=== PATIENT | female | born 1980 | race Caucasian/White ===

== ENCOUNTER 2016-06-23 21:05 | Emergency (ER) | payer MEDICAID ==
--- NOTE | 2016-06-23 22:15 | ER Document Report ---
ED Medical Screen (RME) - General Chief Complaint: Rectal Bleeding Stated Complaint: RECTAL BLEEDING Mode of Arrival: Ambulatory Information source: Patient Notes: Patient presents with complaints of rectal bleeding filled the whole toilet bowl with blood. Denies history of GI bleed reports history of constipation. TRAVEL OUTSIDE OF THE [place] IN LAST 30 DAYS: No - Related Data Allergies/Adverse Reactions: No Known Allergies Allergy (Verified 06/23/16 21:51) Past Medical History - Social History Chew tobacco use (# tins/day): No Frequency of alcohol use: Occasional Drug Abuse: None - Past Medical History Cardiac Medical History: Denies: Hx Coronary Artery Disease, Hx Heart Attack, Hx Hypertension Pulmonary Medical History: Denies: Hx Asthma, Hx Bronchitis, Hx COPD, Hx Pneumonia Neurological Medical History: Denies: Hx Cerebrovascular Accident, Hx Seizures Renal/ Medical History: Denies: Hx Peritoneal Dialysis Musculoskeltal Medical History: Denies Hx Arthritis Psychiatric Medical History: Reports: Hx Depression Past Surgical History: Reports: Hx Section - x1. Denies: Hx Hysterectomy - Immunizations Hx Diphtheria, Pertussis, Tetanus Vaccination: Yes - 2010 Physical Exam - Vital signs Vitals: Temp Pulse BP Pulse Ox 97.9 F 91 141/97 H 97 06/23/16 21:09 06/23/16 21:09 06/23/16 21:09 06/23/16 21:09 Course - Vital Signs Vital signs: Temp Pulse Resp BP Pulse Ox 97.9 F 91 141/97 H 97 06/23/16 21:09 06/23/16 21:09 06/23/16 21:09 06/23/16 21:09
[2016-06-23 22:35] LABS: ABSOLUTE BASOPHILS # (AUTO) 0.1 10^3/uL (0.0-0.2); ABSOLUTE EOSINOPHILS # (AUTO) 0.2 10^3/uL (0.0-0.6); ABSOLUTE LYMPHOCYTES (AUTO) 1.8 10^3/uL (0.5-4.7); ABSOLUTE MONOCYTES (AUTO) 0.6 10^3/uL (0.1-1.4); ABSOLUTE NEUT (AUTO) 5.2 10^3/uL (1.7-8.2); EOSINOPHILS % (AUTO) 2.9 % (0-6); HEMATOCRIT 39.7 % (36.0-47.0); HEMOGLOBIN 12.9 g/dL (12.0-15.5); MEAN CORPUSCULAR HEMOGLOBIN 28.4 pg (27.0-33.4); MEAN CORPUSCULAR HGB CONC 32.5 g/dL (32.0-36.0); MEAN CORPUSCULAR VOLUME 87 fl (80-97); MONOCYTES % (AUTO) 7.1 % (3-13); RED BLOOD COUNT 4.55 10^6/uL (3.72-5.28); RED CELL DISTRIBUTION WIDTH 13.4 % (11.5-14.0); WHITE BLOOD COUNT 7.9 10^3/uL (4.0-10.5)
[2016-06-23 22:56] LABS: ALANINE AMINOTRANSFERASE 58 U/L (9-52); ALBUMIN 4.6 g/dL (3.5-5.0); ALKALINE PHOSPHATASE 53 U/L (38-126); ANION GAP 13 (5-19); ASPARTATE AMINO TRANSFERASE 32 U/L (14-36); BILIRUBIN,TOTAL 0.7 mg/dL (0.2-1.3); BLOOD UREA NITROGEN 18 mg/dL (7-20); CALCIUM 9.6 mg/dL (8.4-10.2); CARBON DIOXIDE 29 mmol/L (22-30); CHLORIDE 102 mmol/L (98-107); CREATININE RESULT 0.62 mg/dL (0.52-1.25); GLUCOSE 106 mg/dL (75-110); POTASSIUM 4.3 mmol/L (3.6-5.0); SODIUM 143.5 mmol/L (137-145); TOTAL PROTEIN 7.1 g/dL (6.3-8.2)
[2016-06-24] MEDS ORDERED: MINERAL OIL 30 ML UDCUP PR ONE (00:55)
[2016-06-24] MEDS ORDERED: LIDOCAINE 2% JELLY 30 ML TUBE TOP ONE (01:16)
[2016-06-24] MEDS ORDERED: LIDOCAINE 2% JELLY 30 ML TUBE ONE (01:30)
--- NOTE | 2016-06-24 03:09 | ER Document Report ---
ED General - General Chief Complaint: Rectal Bleeding Stated Complaint: RECTAL BLEEDING Mode of Arrival: Ambulatory Notes: Patient is a 35 of female presents for complaint of hard bowel movements. She is a long history of constipation difficulty having dominance. She sometimes does have some blood with her stool. She said this time after a small bowel movement she had a lot of it will it which is more than what she is used to seeing. She does have a history of hemorrhoids. She says she's had anal fissures in the past. She has seen GI physician for endoscopy but has never had a colonoscopy. Her recent fevers or infections. No abdominal pain. She says she feels pressure in her rectum and says she knows years stool they're just it is painful to pass. No other complaints at this time. TRAVEL OUTSIDE OF THE [place] IN LAST 30 DAYS: No - Related Data Allergies/Adverse Reactions: No Known Allergies Allergy (Verified 06/23/16 21:51) Past Medical History - General Information source: Patient - Social History Smoking Status: Former Smoker Chew tobacco use (# tins/day): No Frequency of alcohol use: Occasional Drug Abuse: None Family History: Reviewed & Not Pertinent Patient has suicidal ideation: No Patient has homicidal ideation: No - Past Medical History Cardiac Medical History: Denies: Hx Coronary Artery Disease, Hx Heart Attack, Hx Hypertension Pulmonary Medical History: Denies: Hx Asthma, Hx Bronchitis, Hx COPD, Hx Pneumonia Neurological Medical History: Denies: Hx Cerebrovascular Accident, Hx Seizures Renal/ Medical History: Denies: Hx Peritoneal Dialysis GI Medical History: Reports: Hx Gastroesophageal Reflux Disease Musculoskeltal Medical History: Denies Hx Arthritis Psychiatric Medical History: Reports: Hx Depression Past Surgical History: Reports: Hx Section - x1. Denies: Hx Hysterectomy - Immunizations Hx Diphtheria, Pertussis, Tetanus Vaccination: Yes - 2010 Review of Systems - Review of Systems Notes: My Normal Review Basic REVIEW OF SYSTEMS: CONSTITUTIONAL : Denies fever, chills, or sweats. Denies recent illness. RESPIRATORY: Denies cough, cold, or chest congestion. Denies shortness of breath, difficulty breathing, or wheezing. GASTROINTESTINAL: Denies abdominal pain. Denies nausea, vomiting, or diarrhea. Denies constipation. Last BM: today GENITOURINARY: Denies difficulty urinating, painful urination, burning, frequency, or blood in urine. MUSCULOSKELETAL: Denies neck or back pain or joint pain or swelling. SKIN: Denies rash or skin lesions. HEMATOLOGIC : Denies easy bruising or bleeding. NEUROLOGICAL: Denies altered mental status or loss of consciousness. Denies headache. Denies weakness or paralysis or loss of use of either side. Denies problems with gait or speech. Denies sensory or motor loss. ALL OTHER SYSTEMS REVIEWED AND NEGATIVE. Physical Exam - Vital signs Vitals: Temp Pulse BP Pulse Ox 97.9 F 91 141/97 H 97 06/23/16 21:09 06/23/16 21:09 06/23/16 21:09 06/23/16 21:09 - Notes Notes: General Appearance: Well nourished, alert, cooperative, no acute distress, moderate obvious discomfort. Vitals: reviewed, See vital signs table. Head: no swelling or tenderness to the head Eyes: PERRL, EOMI, Conjuctiva clear Mouth: No decreasd moisture Lungs: No wheezing, No rales, No rhonci, No accessory muscle use, good air exchange bilaterally. Heart: Normal rate, Regular rythm, No murmur, no rub Abdomen: Normal BS, soft, No rigidity, No abdominal tenderness, No guarding, no rebound, no abdominal masses, no organomegaly Rectal: Multiple hemorrhoids on the rectal exam. Extremities: strength 5/5 in all extremities, good pulses in all extremities, no swelling or tenderness in the extremities, no edema. Skin: warm, dry, appropriate color, no rash Neuro: speech clear, oriented x 3, normal affect, responds appropriately to questions. Course - Vital Signs Vital signs: Temp Pulse Resp BP Pulse Ox 98.6 F 86 16 127/81 H 97 06/24/16 03:33 06/24/16 03:33 06/24/16 03:33 06/24/16 03:33 06/24/16 03:33 - Laboratory Result Diagrams: 06/23/16 22:20 06/23/16 22:20 Laboratory results interpreted by me: 06/23/16 22:20 ALT 58 H - Transfer of Care Notes: 06/24/16 08:12 We did give the patient and the mother was a small amount of stool. She does not want a further enemas at this time and prefers to do them at home. I did give her some lidocaine jelly to use at home to help with her discomfort in her rectal area. She does have many hemorrhoids. I informed her that she should continue stool softeners. Encourage her to follow closely with her GI physician for reevaluation and for treatment of her hemorrhoids. I informed her that if despite treatment for hemorrhoid she continues of bleeding she may eventually need a colonoscopy to look for other sources. I encourage her to return to ER if she has worsening pain, heavy bleeding, or feels unwell. Dictation of this chart was performed using voice recognition software; therefore, there may be some unintended grammatical errors. Discharge - Discharge Clinical Impression: Rectal pain Hemorrhoids Qualifiers: Hemorrhoid type: unspecified Qualified Code(s): K64.9 - Unspecified hemorrhoids Condition: Good Disposition: HOME, SELF-CARE Additional Instructions: Please follow closely with the GI physician, Dr. Curtis or Dr. Serrato, for closer evaluation and treatment of your hemorrhoids. Please continue to do the enemas at home. Please to them at least twice a day and they start to have significant amount of stool passage. Do not apply the lidocaine jelly more than 3 times a day. Please return to the ER if you have heavy bleeding, worsening pain, fevers, or feel unwell. Referrals: ALEX CURTIS MD [ACTIVE STAFF] - Follow up in 3-5 days MAY SERRATO MD [ACTIVE STAFF] - Follow up in 3-5 days
[2016-06-24 03:34] VITALS: BP 127/81
== END 2016-06-24 03:35 | disposition home or self-care (01) ==
LOC: ER 21:05
DX: K64.9 Unspecified hemorrhoids (principal); K59.00 Constipation, unspecified; K62.89 Other specified diseases of anus and rectum; K62.5 Hemorrhage of anus and rectum; Z87.891 Personal history of nicotine dependence
CPT/HCPCS: 99283; 36415; 84703; 85025; 82272; 80053; 74000; J3490